=== PATIENT | female | born 1935 | race Two or more races ===

== ENCOUNTER 2019-01-01 12:14 | Emergency (ER) | payer OTHER ==
[~2019-01-01] VITALS: Ht 160 cm; Wt 72.6 kg
[2019-01-01 13:17] LABS: Urine WBC None Seen /hpf (0 - 5)
[2019-01-01 13:39] LABS: Urine Bacteria NONE SEEN /hpf (None Seen); Urine Blood Negative /uL (Negative); Urine Specific Gravity 1.003 (1.001-1.035)
[2019-01-01 14:57] LABS: Basophils # (auto) 0.1 uL; Basophils % (auto) 0.7 % (0.0-2.0); Eosinophils # (auto) 0.2 uL; Eosinophils % (auto) 1.6 % (0.0-7.0); Hematocrit 35.7 % (36.0-46.0); Lymphocytes # (auto) 2.7 uL; Lymphocytes % (auto) 27.5 % (10.0-50.0); Mean Corpuscular Hemoglobin 29.3 pg (28.0-32.0); Mean Corpuscular Hgb Conc. 33.5 g/dL (32.0-36.0); Mean Corpuscular Volume 87.3 fL (80.0-100.0); Monocytes # (auto) 0.7 uL; Monocytes % (auto) 7.3 % (0.0-12.0); Neutrophils # (auto) 6.2 uL; Neutrophils % (auto) 62.9 % (37.0-80.0); Platelet Count (auto) 214 10^3/uL (140-450); Red Blood Cells 4.09 10^6/uL (4.0-5.20); Red Cell Distribution Width 13.6 % (11.8-14.3); White Blood Cell 9.8 10^3/uL (4.4-10.8)
[2019-01-01 15:17] LABS: Albumin 3.7 g/dL (3.4-5.0); Anion Gap 6 (5-15); Blood Urea Nitrogen 17 mg/dL (7-18); Calcium 8.8 mg/dL (8.5-10.1); Carbon Dioxide 25 mmol/L (21-32); Chloride 109 mmol/L (98-107); Magnesium 2.4 mg/dL (1.6-2.6); Potassium 3.9 mmol/L (3.5-5.1); Sodium 140 mmol/L (136-145)
[2019-01-01 15:18] LABS: INR 0.95 (0.9-1.15); Partial Thromboplastin Time 27.3 sec (23.64-32.05)
[2019-01-01 15:34] LABS: Alanine Aminotransferase 22 U/L (13-56); Alkaline Phosphatase 92 U/L (45-117); Aspartate Aminotransferase 14 U/L (15-37); Bilirubin, Total 0.2 mg/dL (0.2-1.0); GFR African American 97 mL/min; GFR Non-African American 80 mL/min; Glucose 68 mg/dL (74-106); Total Protein 7.9 g/dL (6.4-8.2)
[2019-01-01] MEDS ORDERED: ACETAMINOPHEN 325 MG TAB PO ONE (22:30)
[2019-01-01 23:24] VITALS: BP 168/76
== END 2019-01-01 23:57 | disposition home or self-care (01) ==
LOC: ER 12:16
DX: R07.9 Chest pain, unspecified (principal); D64.9 Anemia, unspecified; I25.10 Atherosclerotic heart disease of native coronary artery without angina pectoris; E11.9 Type 2 diabetes mellitus without complications; E78.5 Hyperlipidemia, unspecified; I10 Essential (primary) hypertension; Z86.73 Personal history of transient ischemic attack (TIA), and cerebral infarction without residual deficits; Z90.710 Acquired absence of both cervix and uterus
CPT/HCPCS: 36415; 71045; 80053; 81001; 82962; 83735; 83880; 84484; 85025; 85610; 85730; 93005; 94761

== ENCOUNTER 2025-02-08 19:49 | Emergency (ER) | payer OTHER ==
[~2025-02-08] VITALS: Ht 160 cm; Wt 65.0 kg
[2025-02-08] MEDS: ACETAMINOPHEN 325 MG TAB PO ONE (20:45)
--- NOTE | 2025-02-08 20:48 | ED.PDOC ---
Fiorella. trauma (HPI) HPI Comments 89-year-old female with diabetes mellitus type 2, hypertension presented to the ER with a chief complaint of right-sided headache and left lower back pain after mechanical fall earlier today. Patient was in the kitchen when she was avoiding to step on her puppy, and tripped and landed on the right side of her head, d enies any seizure-like activity or losing urine or bowel. Says that she lost consciousness for about a second. Reports dizziness but denies photophobia, neck pain, numbness or tingling, motor or sensory deficits, chest pain, shortness of breaths, abdominal pain or difficulty ambulating. She does have a walker at home and has a history of hip surgeries. Patient takes losartan at home nightly, did not take the dose today. Past medical history: Diabetes mellitus type 2, hypertension Surgical history: Hip surgeries Home medications: Losartan, aspirin, trazodone, famotidine Patient seen and examined in ER. Right temporal/parietal region has localized tenderness to palpation and a small bump. No bruises seen on shoulder or abdomen. Patient is Ambulating. Active and passive range of motion at shoulders intact without pain. Tenderness in the left 8 rib region. Chief Complaint: Fall Injury Time Seen by MD: 20:22 Primary Care Provider: DR. Oumar QUIROZ Allergies: Coded Allergies: NO KNOWN ALLERGIES (Unverified , 01/01/19) Information Source: Patient Mode of Arrival: Ambulatory Past Medical History PAST MEDICAL HISTORY: CAD, DM, High Lipids, HTN, TIA Surgical History: Hysterectomy Family History Family History: Family hx of DM, Family hx of heart laurent, Family hx of HTN Social History Smoker: Non-Smoker Alcohol: Denies ETOH Use Drugs: Denies Drug Use Lives In: Home Constitutional: denies: chills, diaphoresis, fatigue, fever, malaise, sweats, weakness, others EENTM: reports: others (Dizziness); denies: blurred vision, double vision, ear bleeding, ear discharge, ear drainage, ear pain, ear ringing, eye pain, eye redness, hearing loss, mouth pain, mouth swelling, nasal discharge, nose bleeding, nose congestion, nose pain, photophobia, tearing, throat pain, throat swelling, voice changes Respiratory: denies: cough, hemoptysis, orthopnea, SOB at rest, shortness of breath, SOB with excertion, stridor, wheezing, others Cardiovascular: denies: chest pain, dizzy spells, diaphoresis, Dyspnea on exertion, edema, irregular heart beat, left arm pain, lightheadedness, palpitations, PND, syncope, others Gastrointestinal: denies: abdomen distended, abdominal pain, blood streaked bowels, constipated, diarrhea, dysphagia, difficulty swallowing, hematemesis, melena, nausea, poor appetite, poor fluid intake, rectal bleeding, rectal pain, vomiting, others Genitourinary: denies: abnormal vagina bleeding, burning, dyspareunia, dysuria, flank pain, frequency, hematuria, incontinence, pain, , vagina discharge, urgency, others Neurological: reports: dizziness, headache Musculoskeletal: reports: others (Rib pain) Integumetry: denies: bruises, change in color, change in hair/nails, dryness, laceration, lesions, lumps, rash, wounds, others Allergic/Immunocompromised: denies: Difficulty Healing, Frequent Infections, Hives, Itching, others Hematologic/Lymphatic: denies: anemia, blood clots, easy bleeding, easy bruising, swollen glands, others Endocrine: denies: excessive hunger, excessive sweating, excessive thirst, excessive urination, flushing, intolerance to cold, intolerance to heat, unexplained weight gain, unexplained weight loss, others Psychiatric: denies: anxiety, bipolar disorder, depression, hopeless, panic disorder, schizophrenia, sleepless, suicidal, others Physical Exam General Appearance: No Apparent Distress, Normal HEENT: Other (Dry mucous membranes) Neck: NOT DONE Respiratory: No Accessory Muscle Use, No Respiratory Distress, Normal Breath Sounds Cardiovascular: No Edema, No Murmur, Regular Rate/Rhythm Breast Exam: Deferred Gastrointestinal: No Organomegaly, Non Tender, No Pulsatile Mass, Normal Bowel Sounds, Soft Genitalia: Deferred Pelvic: Deferred Rectal: Deferred Extremities: No calf tenderness, Normal capillary refill, Normal inspection, Normal range of motion, Non-tender, No pedal edema, Other (Right temporal/parietal region has localized tenderness to palpation and a small bump. No bruises seen on shoulder or abdomen. Patient is Ambulating. Active and passive range of motion at shoulders intact without pain. Tenderness in the left 8 rib region.) Neurologic: Alert, No Motor Deficits, Normal Affect, Normal Mood Cerebellar Function: NOT DONE Reflexes: NOT DONE Skin: Dry Lymphatic: NOT DONE Was a procedure done? Was a procedure done?: No Differential Diagnosis Multiple Trauma: Closed Head Injury, Fractures, Cerebral Contusion, Hematoma X-Ray, Labs, Meds, VS Vital Signs Date Time Temp Pulse Resp B/P (MAP) Pulse Ox O2 Delivery O2 Flow Rate FiO2 02/08/25 19:55 98.0 81 18 186/90 99 98.0 Lab Test 02/08/25 20:50 Range/Units White Blood Count 12.1 H 4.4-10.8 10^3/uL Red Blood Count 3.82 L 4.0-5.20 10^6/uL Hemoglobin 11.5 L 12.2-16.2 g/dL Hematocrit 32.8 L 36.0-46.0 % Mean Corpuscular Volume 85.9 80.0-100.0 fL Mean Corpuscular Hemoglobin 30.0 28.0-32.0 pg Mean Corpuscular Hemoglobin Concent 34.9 32.0-36.0 g/dL Red Cell Distribution Width 13.2 11.8-14.3 % Platelet Count 246 140-450 10^3/uL Mean Platelet Volume 8.8 6.9-10.8 fL Neutrophils (%) (Auto) 71.2 37.0-80.0 % Lymphocytes (%) (Auto) 20.0 10.0-50.0 % Monocytes (%) (Auto) 6.8 0.0-12.0 % Eosinophils (%) (Auto) 1.4 0.0-7.0 % Basophils (%) (Auto) 0.6 0.0-2.0 % Neutrophils # (Auto) 8.6 1.6-8.6 10 ^3/uL Lymphocytes # (Auto) 2.4 0.4-5.4 10 ^3/uL Monocytes # (Auto) 0.8 0-1.3 10 ^3/uL Eosinophils # (Auto) 0.2 0-0.8 10 ^3/uL Basophils # (Auto) 0.1 0-0.2 10 ^3/uL Nucleated Red Blood Cells 0.1 % Sodium Level 132 L 136-145 mmol/L Potassium Level 4.7 3.5-5.1 mmol/L Chloride Level 97 L 98-107 mmol/L Carbon Dioxide Level 27 20-31 mmol/L Anion Gap 8 5-15 Blood Urea Nitrogen 12 9-23 mg/dL Creatinine 0.74 0.550-1.02 mg/dL Glomerular Filtration Rate Calc 78 >90 mL/min BUN/Creatinine Ratio 16.2 10.0-20.0 Serum Glucose 193 H 74-106 mg/dL Calcium Level 9.3 8.7-10.4 mg/dL X-Ray, Labs, Meds, VS Comment CT head shows COMPUTERIZED TOMOGRAPHY OF THE HEAD WITHOUT CONTRAST REASON FOR STUDY: fall, head injury COMPARISON: None TECHNIQUE: Helical tomographic scans were obtained through the brain. 2-D coronal and sagittal reformatted images are provided. Radiation optimization: All CT scans at this facility use at least one of these dose optimization techni ques: Automated exposure control mA and/or kV adjustment per patient size (includes targeted exams where dose is matched to clinical indication) or iterative reconstruction. RADIATION DOSE: CTDI: 51 mGy DLP: 820 mGy-cm FINDINGS: No suspicious intracranial hyperdensity to suggest acute blood. There is no mass effect nor midline shift. There is mild generalized volume loss with compensatory enlargement of the CSF spaces. There is no hydrocephalus. The suprasellar cistern is intact. There are scattered periventricular and deep white matter hypodensities that are most consistent with chronic microangiopathic changes. The calvarium is intact. The visualized mastoid air cells and paranasal sinuses are clear. There is scalp swelling in the right pa rietal region. IMPRESSION: No acute intracranial abnormality. Right parietal scalp swelling. Mild generalized volume loss with chronic small vessel ischemic change. Rib x-ray shows Single view of the chest shows no infiltrates effusions or pneumothorax. No displaced rib fractures are seen. Spondylosis and degenerative disc changes are noted throughout the thoracic and lumbar spine. Images Reviewed?: Images reviewed and evaluated by me Time of 1ST Reevaluation: 22:00 Reevaluation 1ST: Improved (Pain has improved) Consultation: PCP Patient Education/Counseling: Diagnosis, Treatment Family Education/Counseling: Diagnosis, Treatment Departure 1 Departure Time of Disposition: 23:00 Impression: Primary Impression: Musculoskeletal pain Additional Impression: Accident due to mechanical fall without injury Disposition: HOME / SELF CARE / HOMELESS Condition: Fair Discharged With: Self, Relative Comments Follow up with primary care physician within the next 3 days Eat balance diet rich in calcium and protein to support bone holding, avoid smoking and alcohol. Apply ice to the affected area for 15-20 minutes several times a day for the 1st few days. Always place a cloth between the ice and skin Take Tylenol 3 times daily as needed for pain control Please go to the ER BP and noticed severe increasing pain or swelling not relieved by medication on rest, numbness, tingling, coldness in the toes or foot, worsening redness, discharge or fever, sudden difficulty moving dose or new weakness. CT head shows COMPUTERIZED TOMOGRAPHY OF THE HEAD WITHOUT CONTRAST REASON FOR STUDY: fall, head injury COMPARISON: None TECHNIQUE: Helical tomographic scans were obtained through the brain. 2-D coronal and sagittal reformatted images are provided. Radiation optimization: All CT scans at this facility use at least one of these dose optimization techniques: Automated exposure control mA and/or kV adjustment per patient size (includes targeted exams where dose is matched to clinical indication) or iterative reconstruction. RADIATION DOSE: CTDI: 51 mGy DLP: 820 mGy-cm FINDINGS: No suspicious intracranial hyperdensity to suggest acute blood. There is no mass effect nor midline shift. There is mild generalized volume loss with compensatory enlargement of the CSF spaces. There is no hydrocephalus. The suprasellar cistern is intact. There are scattered periventricular and deep white matter hypodensities that are most consistent with chronic microangiopat hic changes. The calvarium is intact. The visualized mastoid air cells and paranasal sinuses are clear. There is scalp swelling in the right parietal region. IMPRESSION: No acute intracranial abnormality. Right parietal scalp swelling. Mild generalized volume loss with chronic small vessel ischemic change. Rib x-ray shows Single view of the chest shows no infiltrates effusions or pneumothorax. No displaced rib fractures are seen. Spondylosis and degenerative disc changes are noted throughout the thoracic and lumbar spine. Critical Care Note Critical Care Time?: No Stability Stability form required: MAMIE Love RESIDENT Feb 08, 2025 20:48
--- NOTE | 2025-02-08 21:24 | DVH ---
COMPUTERIZED TOMOGRAPHY OF THE HEAD WITHOUT CONTRAST REASON FOR STUDY: fall, head injury COMPARISON: None TECHNIQUE: Helical tomographic scans were obtained through the brain. 2-D coronal and sagittal refor matted images are provided. Radiation optimization: All CT scans at this facility use at least one of these dose optimization techniques: Automated exposure control mA and/or kV adjustment per patient s ize (includes targeted exams where dose is matched to clinical indication) or iterative reconstructio n. RADIATION DOSE: CTDI: 51 mGy DLP: 820 mGy-cm FINDINGS: No suspicious intracranial hyperdensity to suggest acute blood. There is no mass effect n or midline shift. There is mild generalized volume loss with compensatory enlargement of the CSF spac es. There is no hydrocephalus. The suprasellar cistern is intact. There are scattered periventricular and deep white matter hypodensities that are most consistent with chronic microangiopathic changes. The calvarium is intact. The visualized mastoid air cells and paranasal sinuses are clear. There is s calp swelling in the right parietal region. IMPRESSION: No acute intracranial abnormality. Right parietal scalp swelling. Mild generalized volume loss with chronic small vessel ischemic change.
[2025-02-08 21:33] LABS: Hematocrit 32.8 % (36.0-46.0); Hemoglobin 11.5 g/dL (12.2-16.2); Mean Corpuscular Hemoglobin 30.0 pg (28.0-32.0); Mean Corpuscular Volume 85.9 fL (80.0-100.0); Nucleated Red Blood Cells % 0.1 %; Potassium 4.7 mmol/L (3.5-5.1)
[2025-02-08 21:34] LABS: Anion Gap 8 (5-15); Calcium 9.3 mg/dL (8.7-10.4); Carbon Dioxide 27 mmol/L (20-31)
[2025-02-08 21:39] LABS: BUN/Creatinine Ratio 16.2 (10.0-20.0); Blood Urea Nitrogen 12 mg/dL (9-23)
--- NOTE | 2025-02-08 21:43 | DVH ---
CLINICAL INDICATION: fall, rib pain TECHNIQUE: 5 radiographic views of the left ribs were obtained. Comparison: None FINDINGS/IMPRESSION: Single view of the chest shows no infiltrates effusions or pneumothorax. No displaced rib fractures are seen. Spondylosis and degenerative disc changes are noted throughout the thoracic and lumbar spine.
[2025-02-08 21:47] LABS: Chloride 97 mmol/L (98-107); Sodium 132 mmol/L (136-145)
[2025-02-08 21:48] LABS: Glucose 193 mg/dL (74-106)
[2025-02-08] MEDS: FAMOTIDINE 20 MG TAB PO ONE (22:01)
[2025-02-08 22:02] VITALS: BP 136/65; PULSE 64; TEMP 97.8; O2SAT 95
[2025-02-08 22:54] VITALS: RESP 15
== END 2025-02-08 22:58 | disposition home or self-care (01) ==
LOC: ER 19:56
DX: R07.89 Other chest pain (principal); E11.9 Type 2 diabetes mellitus without complications; I10 Essential (primary) hypertension; I25.10 Atherosclerotic heart disease of native coronary artery without angina pectoris; E78.5 Hyperlipidemia, unspecified; Z90.710 Acquired absence of both cervix and uterus; Z86.73 Personal history of transient ischemic attack (TIA), and cerebral infarction without residual deficits; Z79.899 Other long term (current) drug therapy; W19.XXXA Unspecified fall, initial encounter; Y93.89 Activity, other specified; Y92.000 Kitchen of unspecified non-institutional (private) residence as the place of occurrence of the external cause; Y99.8 Other external cause status
CPT/HCPCS: 36415; 70450; 71101; 80048; 85025